=== PATIENT | female | born 1990 | race Caucasian/White ===

== ENCOUNTER 2016-07-09 15:43 | Emergency (ER) | payer OTHER ==
[~2016-07-09] VITALS: Wt 54.5 kg
[~2016-07-09 15:43] MED LIST: ACET325T33 PO; ALBU8.5H3 INH; ALPR1TAB2 PO; BEN25 PO; DOCU-144 PO; GUAI473L22 PO; Hydrocodone Bit/Acetaminophen PO; LEVO1TAB26 PO; POLY17PO6 PO; PRED50TA PO; TRAM50TA2 PO
[2016-07-09] MEDS ORDERED: morphine 2 MG INJ IV STA (17:44)
[2016-07-09] MEDS ORDERED: SOD CHLORIDE 0.9% 1,000 ML IV STA (17:44)
[2016-07-09] MEDS ORDERED: ONDANSETRON 4 MG INJ IV STA (17:44)
[2016-07-09 18:44] LABS: ADD SCAN DIFF NO
[2016-07-09 18:46] LABS: BASOPHILS % 0.3 % (0.0-2.0); EOSINOPHILS # 0.1 10^3/ul (0.0-0.5); HEMATOCRIT 37.2 % (37.0-47.0); HEMOGLOBIN 12.4 g/dl (12.0-16.0); LYMPHOCYTES % 25.2 % (15.0-51.0); MEAN CORPUSCULAR HGB CONC 33.3 g/dl (32.0-37.0); MEAN PLATELET VOLUME 10.5 fl (7.4-10.4); MONOCYTE # 0.6 10^3/ul (0.3-0.9); MONOCYTES % 7.7 % (0.0-11.0); NEUTROPHIL # 5.1 10^3/ul (1.6-7.5); NEUTROPHILS % 65.5 % (39.0-77.0); PLATELET COUNT 289 10^3/UL (140-415); RED CELL DISTRIBUTION WIDTH 12.3 % (11.5-14.5); WHITE BLOOD COUNT 7.8 10^3/ul (4.8-10.8)
--- NOTE | 2016-07-09 18:49 | ERD ---
ER Documentation Chief Complaint Date/Time DATE: 07/09/16 TIME: 18:48 Chief Complaint RIGHT LOWER QUAD PAIN 8/10 HPI Patient is a 26-year-old female who presents complaining of 1 day of right lower quadrant abdominal pain that she rates as an 8 out of 10. She states yesterday she had nausea vomiting and diarrhea. Denies fever. Denies any dysuria but does state she may have hematuria. Last menstrual period was June 17. Pain started off being intermittent but now it is constant 7 out of 10 throbbing in the right lower quadrant. ROS All systems reviewed and are negative except as per history of present illness. Medications Home Meds Active Scripts Phenazopyridine Hcl* (Pyridium*) 100 Mg Tab, 100 MG PO TID Y for URINARY PAIN, # 8 TAB Prov:ROMAIN PEREZ PA-C 07/09/16 Cephalexin* (Keflex*) 500 Mg Capsule, 500 MG PO BID for 7 Days, CAP Prov:ROMAIN PEREZ PA-C 07/09/16 Diphenhydramine Hcl* (Benadryl*) 25 Mg Cap, 25 MG PO Q6 Y for ITCHING/RASH, #30 TAB Prov:FRANKLYN NESBITT NP 01/28/16 Guaifenesin-Codeine Phosphate* (Guaifenesin* AC Cough Syrup) 473 Ml Liquid, 5 ML PO Q4H Y for COUGH, #60 ML Prov:FRANKLYN NESBITT NP 01/28/16 Prednisone* (Prednisone*) 50 Mg Tablet, 50 MG PO DAILY, #5 TAB Prov:FRANKLYN NESBITT NP 01/28/16 Albuterol Sulfate* (Proair HFA*) 8.5 Gm Hfa.aer.ad, 2 PUFF INH Q4H Y for WHEEZING AND SOB, #1 INHALER Prov:FRANKLYN NESBITT NP 01/28/16 Alprazolam* (Xanax*) 1 Mg Tab, 1 MG PO Q8H Y for ANXIETY, #10 TAB Prov:HILARIO MILLS PA-C 08/14/15 Acetaminophen* (Tylenol*) 325 Mg Tablet, 1 TAB PO Q6 Y for PAIN AND OR ELEVATED TEMP, #20 TAB Prov:CHELSEY CROSS PA-C 06/19/15 Docusate Sodium* (Colace*) 100 Mg Capsule, 100 MG PO TID, #30 CAP Prov:CHELSEY CROSS PA-C 06/19/15 Polyethylene Glycol* (Miralax*) 17 Gm Powd.pack, 17 GM PO DAILY, #7 Prov:CHELSEY CROSS PA-C 06/19/15 [Hydrocodone Bit/Acetaminophen] 1 TAB TAB No Conflict Check, 2 TAB PO Q4H Y for Pain 6-10, #30 TAB Prov:KENIA PÉREZ 10/01/14 Tramadol HCl (Tramadol HCl) 50 Mg Tab, 50 MG PO Q4 Y for PAIN, #20 TAB Prov:MARY BETH GRANT 09/27/14 Reported Medications Levonorgestrel-Ethinyl Estradiol (Lutera) 1 Tab Tablet, 1 TAB PO DAILY, TAB 09/27/14 Allergies Allergies: Coded Allergies: bismuth subsalicylate (Verified Allergy, Mild, RED RASH, ITCHINESS, ) PMhx/Soc History of Surgery: Yes (CHOLECYSTECTOMY) Anesthesia Reaction: No Hx Neurological Disorder: No Hx Respiratory Disorders: Yes (ASTHMA) Hx Cardiac Disorders: No Hx Psychiatric Problems: No Hx Miscellaneous Medical Probl: No Hx Alcohol Use: Yes (SOCIALLY) Hx Substance Use: No Hx Tobacco Use: No Smoking Status: Never smoker FmHx Family History: No diabetes Physical Exam Vitals Vital Signs Date Time Temp Pulse Resp B/P Pulse Ox O2 Delivery O2 Flow Rate FiO2 07/09/16 16:01 98.6 101 18 123/73 97 Physical Exam General: well developed, well nourished, alert, nontoxic, no distress Head: normocephalic, atraumatic Eyes: PERRL, normal conjunctiva Neck: Supple, nontender, no lymphadenopathy, no midline tenderness Respiratory: Clear to auscaultation bilaterally, speaks in full sentences, no use of accesory muscles or labored breathing, no rales, ronchi, or wheezing Cardiovascular: RRR, No murmurs GI: soft, non tender, non distended, negative murphys sign, negative mcburneys point tenderness, no cva tenderness bilaterally, no rebound or guarding Back: no midline tenderness, no step offs or bony abnormalities, sensation to light touch in tact Result Diagram: 4/27/17 1820 4/27/17 1820 Results 24 hrs Laboratory Tests Test 07/09/16 18:20 White Blood Count 7.810^3/ul Red Blood Count 4.0010^6/ul Hemoglobin 12.4g/dl Hematocrit 37.2% Mean Corpuscular Volume 93.0fl Mean Corpuscular Hemoglobin 31.0pg Mean Corpuscular Hemoglobin Concent 33.3g/dl Red Cell Distribution Width 12.3% Platelet Count 22717^3/UL Mean Platelet Volume 10.5fl Neutrophils % 65.5% Lymphocytes % 25.2% Monocytes % 7.7% Eosinophils % 1.0% Basophils % 0.3% Nucleated Red Blood Cells % 0.0/100WBC Neutrophils # 5.110^3/ul Lymphocytes # 2.010^3/ul Monocytes # 0.610^3/ul Eosinophils # 0.110^3/ul Basophils # 0.010^3/ul Nucleated Red Blood Cells # 0.010^3/ul Urine Color LT. YELLOW Urine Clarity CLOUDY Urine pH 6.0 Urine Specific [place] 1.020 Urine Ketones 15 Urine Nitrite POSITIVE Urine Bilirubin NEGATIVE Urine Urobilinogen 0.2 E.U./dL Urine Leukocyte Esterase 1+ Urine Microscopic RBC >50/HPF Urine Microscopic WBC >200/HPF Urine Squamous Epithelial Cells MODERATE Urine Bacteria MANY Urine Hemoglobin 3+ Urine Glucose NEGATIVE% Urine Total Protein 1+ Sodium Level 135mmol/L Potassium Level 3.7mmol/L Chloride Level 100mmol/L Carbon Dioxide Level 28mmol/L Anion Gap 11 Blood Urea Nitrogen 6mg/dl Creatinine 0.47mg/dl Glucose Level 92mg/dl Calcium Level 8.8mg/dl Total Bilirubin 0.1mg/dl Direct Bilirubin 0.00mg/dl Indirect Bilirubin 0.1mg/dl Aspartate Amino Transf (AST/SGOT) 19IU/L Alanine Aminotransferase (ALT/SGPT) 25IU/L Alkaline Phosphatase 79IU/L Total Protein 7.2g/dl Albumin 4.1g/dl Globulin 3.10g/dl Albumin/Globulin Ratio 1.32 Lipase 50U/L Current Medications Medications (Trade) Dose Ordered Sig/Kd Route PRN Reason Start Time Stop Time Status Last Admin Dose Admin Sodium Chloride (NS) 1,000 ml @ 1,000 mls/hr Q1H STAT IV 07/09/16 17:44 07/09/16 18:43 DC 07/09/16 18:25 Morphine Sulfate (morphine) 2 mg ONCE STAT IV 07/09/16 17:44 07/09/16 17:46 DC 07/09/16 18:25 Ondansetron HCl (Zofran Inj) 4 mg ONCE STAT IV 07/09/16 17:44 07/09/16 17:46 DC 07/09/16 18:25 Procedures/MDM Patient presents with right lower quadrant abdominal pain and was seen at urgent care and sent to rule out appendicitis. She does not have any tenderness on examination and she is well-appearing and well-hydrated. Mild tachycardia 101 otherwise vital signs are normal. She was given IV fluids Zofran and pain medication abdominal labs and CT scan was ordered. CT unremarkable. Blood work unremarkable. Urine negative for . Urine did show evidence of cystitis that she will be treated with Keflex and Pyridium and given copies of all of her labs and CT reports that she can follow up with primary care. Recommended this patient follow up with her primary care doctor within 48 hours or return to the emergency room for any worsening of symptoms. However this time I do believe there is suitable for outpatient management. I answered all their questions and they agreed with the plan and were discharged home. Departure Diagnosis: Primary Impression: Cystitis Condition: Stable ROMAIN PEREZ PA-C Jul 09, 2016 18:49
--- NOTE | 2016-07-09 18:58 | RADRPT ---
PROCEDURE: CT Abdomen and Pelvis without contrast. CLINICAL INDICATION: Abdominal pain TECHNIQUE: CT scan of the abdomen and pelvis was performed on a multidetector high-resolution CT s canner without intravenous contrast. Coronal and sagittal reformatted images were obtained from the axial source images. Images were reviewed on a high-resolution PACS workstation. The total exam CTD I equals 7mGy and the total exam DLP equals 335mGy-cm. One or more of the following dose reduction t echniques were used: Automated exposure control, Adjustment of the mA and/or kV according to patient size, and/or use of iterative reconstruction technique. COMPARISON: Abdominal CT 06/19/2015 FINDINGS: Evaluation of the solid organs is limited given the lack of intravenous contrast administration. The lung bases are clear. The liver, pancreas, spleen, and adrenals are grossly unremarkable. Status post cholecystectomy. No evidence of biliary dilatation. No hydronephrosis. No renal or ureteral stone. No bowel obstruction. Normal-caliber appendix. No significant retroperitoneal lymphadenopathy, ascites or evidence of pneumoperitoneum. IMPRESSION: No acute intra-abdominal process identified. Normal-caliber appendix. No evidence of bowel obstruction. No renal or ureteral stone. Status post cholecystectomy. RPTAT: AA .Bienvenido Oliveros MD, Date Time Electronically viewed and signed by .Bienvenido Oliveros MD, on 07/09/2016 18:58 .T/
[2016-07-09 18:59] LABS: ADD UMIC YES; URINE BILIRUBIN (Dip) NEGATIVE (NEGATIVE); URINE BLOOD (Dip) 3+ (NEGATIVE); URINE COLOR LT. YELLOW (YELLOW); URINE GLUCOSE (Dip) NEGATIVE (NEGATIVE); URINE KETONES (Dip) 15 (NEGATIVE); URINE LEUKOCYTE ESTERASE (Dip) 1+ (NEGATIVE); URINE NITRITE (Dip) POSITIVE (NEGATIVE); URINE TOTAL PROTEIN (Dip) 1+ (NEGATIVE); URINE UROBILINOGEN (Dip) 0.2 E.U./dL (0.1-1.0)
[2016-07-09 19:05] LABS: ALBUMIN 4.1 g/dl (3.3-4.9); ALBUMIN/GLOBULIN RATIO 1.32; BILIRUBIN,INDIRECT 0.1 mg/dl (0-1.1); BILIRUBIN,TOTAL 0.1 mg/dl (0.2-1.3); CALCIUM 8.8 mg/dl (8.4-10.2); CREATININE 0.47 mg/dl (0.44-1.00); POTASSIUM 3.7 mmol/L (3.5-5.1); TOTAL PROTEIN 7.2 g/dl (6.1-8.1)
[2016-07-09 19:22] LABS: BACTERIA,URINE MANY; SQUAMOUS EPITHELIAL CELL,UR MODERATE; URINE RBCS >50 /HPF (0)
[2016-07-09] MEDS ORDERED: PHEN-537 PO (19:22)
[2016-07-09] MEDS ORDERED: CEPH-443 PO (19:22)
[2016-07-09] MEDS ORDERED: ONDANSETRON (ODT) 4 MG TAB ODT STA (19:33)
[2016-07-09 19:42] VITALS: BP 121/71; PULSE 79; RESP 16; TEMP 98.6
== END 2016-07-09 19:43 | disposition home or self-care (01) ==
LOC: FTE 15:43
DX: N30.90 Cystitis, unspecified without hematuria (principal); J45.909 Unspecified asthma, uncomplicated
CPT/HCPCS: 36415; 74176; 80053; 81001; 83690; 85025; 96374; 96375; J2270; J2405; J7030; Z7502; Z7610; 81003

== ENCOUNTER 2017-02-10 02:57 | Emergency (ER) | payer OTHER ==
[~2017-02-10] VITALS: Ht 160 cm; Wt 57.1 kg
[~2017-02-10 02:57] MED LIST changes: +CEPH-443 PO; +PHEN-537 PO
[2017-02-10 03:10] VITALS: Ht 160 cm; Wt 57.1 kg
--- NOTE | 2017-02-10 03:53 | ERD ---
ER Documentation Chief Complaint Chief Complaint Pt reports bump to L side of neck causing pain and blurry vision HPI 26-year-old female presents here to emergency department for complaints of headache for 4 weeks. Noticed a bump on the left neck area which is also causing some pain. Patient also complains of headache throbbing pain, 6/ 10 scale, has been having on and off blurry vision. Patient did not have any recent head injury. Patient denies any vomiting. Patient denies any fever chills. Patient denies any ear pain or ear discharge. ROS All systems reviewed and are negative except as per history of present illness. Medications Home Meds Active Scripts Ibuprofen* (Motrin*) 600 Mg Tab, 600 MG PO Q6H Y for PAIN AND OR ELEVATED TEMP, #30 TAB Prov:FRANKLYN NESBITT NP 02/10/17 Amoxicillin/Potassium Clav (Amox-Clav 875-125 mg Tablet) 875-125 mg Tab, 1 TAB PO BID for 10 Days, #20 TAB Prov:FRANKLYN NESBITT NP 02/10/17 Acetamin/Butalbital/Caffeine* (Fioricet*) [id number] Tab, 1 TAB PO Q6H Y for PAIN, #30 TAB Prov:FRANKLYN NESBITT NP 02/10/17 Phenazopyridine Hcl* (Pyridium*) 100 Mg Tab, 100 MG PO TID Y for URINARY PAIN, # 8 TAB Prov:ROMAIN PEREZ PA-C 07/09/16 Cephalexin* (Keflex*) 500 Mg Capsule, 500 MG PO BID for 7 Days, CAP Prov:ROMAIN PERZE PA-C 07/09/16 Diphenhydramine Hcl* (Benadryl*) 25 Mg Cap, 25 MG PO Q6 Y for ITCHING/RASH, #30 TAB Prov:FRANKLYN NESBITT NP 01/28/16 Guaifenesin-Codeine Phosphate* (Guaifenesin* AC Cough Syrup) 473 Ml Liquid, 5 ML PO Q4H Y for COUGH, #60 ML Prov:FRANKLYN NESBITT NP 01/28/16 Prednisone* (Prednisone*) 50 Mg Tablet, 50 MG PO DAILY, #5 TAB Prov:FRANKLYN NESBITT NP 01/28/16 Albuterol Sulfate* (Proair HFA*) 8.5 Gm Hfa.aer.ad, 2 PUFF INH Q4H Y for WHEEZING AND SOB, #1 INHALER Prov:RAMILAFRANKLYN MENDOSA NP 01/28/16 Alprazolam* (Xanax*) 1 Mg Tab, 1 MG PO Q8H Y for ANXIETY, #10 TAB Prov:HILARIO MILLS PA-C 08/14/15 Acetaminophen* (Tylenol*) 325 Mg Tablet, 1 TAB PO Q6 Y for PAIN AND OR ELEVATED TEMP, #20 TAB Prov:CHELSEY CROSS PA-C 06/19/15 Docusate Sodium* (Colace*) 100 Mg Capsule, 100 MG PO TID, #30 CAP Prov:CHELSEY CROSS PA-C 06/19/15 Polyethylene Glycol* (Miralax*) 17 Gm Powd.pack, 17 GM PO DAILY, #7 Prov:CHELSEY CROSS PA-C 06/19/15 [Hydrocodone Bit/Acetaminophen] 1 TAB TAB No Conflict Check, 2 TAB PO Q4H Y for Pain 6-10, #30 TAB Prov:KENIA PÉREZ 10/01/14 Tramadol HCl (Tramadol HCl) 50 Mg Tab, 50 MG PO Q4 Y for PAIN, #20 TAB Prov:MARY BETH GRANT 09/27/14 Reported Medications Levonorgestrel-Ethinyl Estradiol (Lutera) 1 Tab Tablet, 1 TAB PO DAILY, TAB 09/27/14 Allergies Allergies: Coded Allergies: bismuth subsalicylate (Verified Allergy, Mild, RED RASH, ITCHINESS, ) PMhx/Soc History of Surgery: Yes (CHOLECYSTECTOMY) Anesthesia Reaction: No Hx Neurological Disorder: No Hx Respiratory Disorders: Yes (ASTHMA) Hx Cardiac Disorders: No Hx Psychiatric Problems: No Hx Miscellaneous Medical Probl: No Hx Alcohol Use: Yes (SOCIALLY) Hx Substance Use: No Hx Tobacco Use: No Smoking Status: Never smoker FmHx Family History: No coronary disease, No diabetes, No other Physical Exam Vitals Vital Signs Date Time Temp Pulse Resp B/P Pulse Ox O2 Delivery O2 Flow Rate FiO2 02/10/17 03:10 98.3 89 16 132/79 98 Physical Exam GENERAL: The patient is well developed and appropriate for usual state of health, in no apparent distress. HEENT: Atraumatic. Ears: Normal tympanic membrane, no erythema or bulging. No ear canal swelling. No ear discharge. Nose: normal nasal turbinates, no erythema or swelling. Normal nasal discharge. Throat: oropharynx clear. No tonsillar swelling or tonsillar exudates. No lymphadenopathy. The lump noted by the patient in the back of the ear and the scalp area, no palpable lump, bony prominence noted. CHEST: Clear to auscultation bilaterally. There are no rales, wheezes or rhonchi. HEART: Regular rate and rhythm. No murmurs, clicks, rubs or gallops. No S3 or S4. ABDOMEN: Soft, nontender and nondistended. Good bowel sounds. No rebound or guarding. No gross peritonitis. No gross organomegaly or masses. No Ludwig sign or McBurney point tenderness. BACK: No midline or flank tenderness. EXTREMITIES: Equal pulses bilaterally. There is no peripheral clubbing, cyanosis or edema. No focal swelling or erythema. Full range of motion. Grossly neurovascularly intact. NEURO: Alert and oriented. Cranial nerves 2-12 intact. Motor strength in all 4 extremities with 5/5 strength. Sensation grossly intact. Normal speech and gait. SKIN: There is no apparent rash or petechia. The skin is warm and dry. HEMATOLOGIC AND LYMPHATIC: There is no evidence of excessive bruising or lymphedema. No gross cervical, axillary, or inguinal lymphadenopathy. Results 24 hrs PROCEDURE: CT BRAIN WITHOUT CONTRAST CLINICAL INDICATION: 26-year-old female with headaches. TECHNIQUE: The study was performed utilizing a [employer] VCT 64-slice CT scanner. Direct axial sections were obtained from the foramen magnum to the vertex without the use of intravenous contrast material. Sagittal and coronal reformations were obtained. One or more the following dose reduction techniques were utilized: automated exposure control, adjustment of the mA and/or kV according to patient's size and/or the use of iterative reconstruction technique. DICOM images are available. The images were viewed on a PACS workstation. CTD/vol = 45.0 mGy; Total Exam DLP = 720.2 mGy-cm. COMPARISON: None. FINDINGS: The ventricles have a normal size, shape and position. There is no evidence for mass effect or midline shift. There are no intracranial areas of abnormal attenuation. There is no evidence for acute intra or extra-axial blood. The bony calvarium is intact. There is mild polypoidal mucosal thickening within the inferior maxillary sinuses. No air-fluid levels are noted. The mastoid air cells are without significant soft tissue. Multiple bilateral earrings as well as left lateral orbital metallic piercings are noted. IMPRESSION: 1. The intracranial contents are unremarkable on this noncontrast CT scan of the brain. 2. Mild polypoidal mucosal thickening inferior maxillary sinuses. .Aram Mooney MD, Date Time Electronically viewed and signed by .Aram Mooney MD, MD on 02/10/2017 04:11 .M/ CC: FRANKLYN NESBITT [employer]OT[employer]YPE ENGINEER Procedures/MDM Medical Decision Making: Patient symptoms are consistent with headache, can be also from the maxillary sinusitis.. There is low suspicion for neurological emergencies at this time since patients neurologic exam is normal. Patient did not have any altered level consciousness, vomiting, changes in balance or memory and did not have any head injury. Patients CT scan of the head does not show any neurological emergencies at this time. Lumbar puncture not indicated at this time, no sudden thunderclap headache, patient has been having a headache chronically for the last 3 weeks., Rx: Fioricet, Ibuprofen Augmentin Dispostion: Home. Stable Disclaimer: Inadvertent spelling and grammatical errors are likely due to EHR/ dictation software use and do not reflect on the overall quality of patient care. Also, please note that the electronic time recorded on this note does not necessarily reflect the actual time of the patient encounter. Departure Diagnosis: Primary Impression: Headache Headache type: unspecified Headache chronicity pattern: acute headache Intractability: not intractable Qualified Code: R51 - Acute nonintractable headache, unspecified headache type Additional Impression: Sinusitis Sinusitis location: maxillary Chronicity: acute Recurrence: not specified as recurrent Qualified Code: J01.00 - Acute maxillary sinusitis, recurrence not specified Condition: Stable Patient Instructions: Acute Sinusitis, Self-Care for Headaches FRANKLYN NESBITT NP Feb 10, 2017 03:53
--- NOTE | 2017-02-10 04:12 | RADRPT ---
PROCEDURE: CT BRAIN WITHOUT CONTRAST CLINICAL INDICATION: 26-year-old female with headaches. TECHNIQUE: The study was performed utilizing a [employer] VCT 64-slice CT scanner. Direct axia l sections were obtained from the foramen magnum to the vertex without the use of intravenous contra st material. Sagittal and coronal reformations were obtained. One or more the following dose reduct ion techniques were utilized: automated exposure control, adjustment of the mA and/or kV according t o patient's size and/or the use of iterative reconstruction technique. DICOM images are available. T he images were viewed on a PACS workstation. CTD/vol = 45.0 mGy; Total Exam DLP = 720.2 mGy-cm. COMPARISON: None. FINDINGS: The ventricles have a normal size, shape and position. There is no evidence for mass effect or midl ine shift. There are no intracranial areas of abnormal attenuation. There is no evidence for acute intra or extra-axial blood. The bony calvarium is intact. There is mild polypoidal mucosal thickeni ng within the inferior maxillary sinuses. No air-fluid levels are noted. The mastoid air cells are w ithout significant soft tissue. Multiple bilateral earrings as well as left lateral orbital metallic piercings are noted. IMPRESSION: 1. The intracranial contents are unremarkable on this noncontrast CT scan of the brain. 2. Mild polypoidal mucosal thickening inferior maxillary sinuses. .Aram Mooney MD, Date Time Electronically viewed and signed by .Aram Mooney MD, on 02/10/2017 04:11 .Caro/
[2017-02-10] MEDS ORDERED: IBUP-1542 PO (04:22)
[2017-02-10] MEDS ORDERED: FIORICET PO (04:22)
[2017-02-10] MEDS ORDERED: AMOX1TAB10 PO (04:22)
== END 2017-02-10 04:35 | disposition home or self-care (01) ==
LOC: FTE 02:57
DX: J01.00 Acute maxillary sinusitis, unspecified (principal); J45.909 Unspecified asthma, uncomplicated; R40.2142 Coma scale, eyes open, spontaneous, at arrival to emergency department; R40.2252 Coma scale, best verbal response, oriented, at arrival to emergency department; R40.2362 Coma scale, best motor response, obeys commands, at arrival to emergency department
CPT/HCPCS: 70450; Z7502

== ENCOUNTER 2017-11-10 23:33 | Emergency (ER) | END 2017-11-11 03:25 | disposition left against medical advice (07) ==